=== PATIENT | female | born 1990 | race Hispanic/Latino ===

== ENCOUNTER 2020-04-08 07:50 | Emergency (ER) | payer SELFPAY ==
[2020-04-08] MEDS ORDERED: DiphenhydrAMINE HCL 50 MG/ML VIAL ONE (08:57)
[2020-04-08] MEDS ORDERED: METHYLPREDNISOLONE SOD SUCC 125MG/2ML VIAL ONE (08:57)
== END 2020-04-08 10:46 | disposition home or self-care (01) ==
LOC: EDH 07:50
DX: L50.0 Allergic urticaria (principal)
CPT/HCPCS: 96372 ×2; 99284; J1200; J2930

== ENCOUNTER 2020-04-10 01:15 | Emergency (ER) | payer SELFPAY ==
[2020-04-10] MEDS ORDERED: 0.9%NACL 1000ML 1,000 ML IV ONE (01:16)
[2020-04-10] MEDS ORDERED: DiphenhydrAMINE HCL 50 MG/ML VIAL ONE (01:34)
[2020-04-10] MEDS ORDERED: SOLU-MEDROL 125MG VIAL ONE (01:34)
[2020-04-10] MEDS ORDERED: FAMOTIDINE 20MG VIAL IV ONE (01:35)
[2020-04-10 01:36] LABS: BASOPHILS % (AUTO) 0.1 % (0.0-5.0); EOSINOPHILS % (AUTO) 0.3 % (0.0-8.0); HEMATOCRIT 39.6 % (36-48); LYMPHOCYTES % (AUTO) 12.4 % (21.0-51.0); MEAN CORPUSCULAR HGB CONC 33.6 g/dL (32.0-36.0); MEAN CORPUSCULAR VOLUME 89.4 fL (79-99); MONOCYTES % (AUTO) 3.4 % (3.0-13.0); NEUTROPHILS % (AUTO) 83.4 % (40.0-77.0); PLATELET COUNT (AUTO) 502 K/uL (130-400); RED BLOOD CELL COUNT(AUTO) 4.43 MIL/uL (4.00-5.50); RED CELL DISTRIBUTION WIDTH 12.5 % (11.0-15.5); WHITE BLOOD COUNT (AUTO) 23.2 K/uL (4.8-10.8)
[2020-04-10 01:44] LABS: CREATININE 0.8 mg/dL (0.5-1.5); POTASSIUM 3.6 mmol/L (3.5-5.1)
[2020-04-10 01:49] LABS: ALBUMIN 3.4 g/dL (3.5-5.0); BILIRUBIN,TOTAL 0.2 mg/dL (0.2-1.0); TOTAL PROTEIN, SERUM 8.1 g/dL (6.0-8.3)
== END 2020-04-10 05:15 | disposition home or self-care (01) ==
LOC: EDH 01:15
DX: R21 Rash and other nonspecific skin eruption (principal)
CPT/HCPCS: 36415; 80053; 81025; 82550; 85025; 86701; 87390; 96361; 96374; 96375; 99284; J1200; J2930; J3490; J7030